=== PATIENT | female | born 1975 ===

== ENCOUNTER 2017-02-13 11:56 | Emergency (ER) | payer MEDICARE, OTHER ==
[2017-02-13 11:56] VITALS: BMI 33.7
[2017-02-13 12:13] VITALS: BP 129/80; PULSE 95; RESP 18; TEMP 98.2; O2SAT 96
--- NOTE | 2017-02-13 12:27 | ED PDOC ---
HPI: Back Chief Complaint (Nursing): Back Pain History Per: Patient History/Exam Limitations: no limitations Onset/Duration Of Symptoms: Gradual Current Symptoms Are (Timing): Still Present Previous Symptoms: Back Pain, Chronic Pain Exacerbating Factor(s): Movement Additional Complaint(s): 02/13/2017 Britta Hutton is a 41 y/o female, whose past medical hisotry inlcudes hyperlipidemia, scoliosis, and chronic lower back pain, who presents to the ED complaining of lower back pain radiating to her lower extremities. Patient reports these past few days the pain has become worse, especially with movement and admits to doing heavy lifting in her daily activities. Patient notes she has gone to physical therapy, and pain management, but has had no significant relief. Patient denies any fall, trauma, chest pain, shortness of breath, bowel or bladder incontinence/retention, saddle anesthesia, paresthesias, focal weakness, sensory deficit, gait dysfunction, hematuria or dysuria. PMD: Dr. Sanchez Past Medical History Reviewed: Historical Data, Nursing Documentation, Vital Signs Vital Signs: Last Vital Signs Temp 98.2 F 02/13/17 12:11 Pulse 95 H 02/13/17 12:11 Resp 18 02/13/17 12:11 BP 129/80 02/13/17 12:11 Pulse Ox 96 02/13/17 12:11 - Medical History PMH: Gastritis, Hyperlipidemia - Family History Family History: States: Unknown Family Hx - Home Medications Home Medications: Ambulatory Orders Medication Instructions Recorded Albuterol HFA [Ventolin HFA 90 90 mcg INH Q6 PRN 09/22/ mcg/actuation (8 g)] Aspirin 06/06/16 Ondansetron [Zofran Odt] 4 mg PO TID #8 odt 06/06/16 Naproxen 1 tab PO Q12 PRN #14 tab 02/13/17 diaZEpam [Valium] 5 mg PO Q6 PRN #5 tab 02/13/17 - Allergies Allergies/Adverse Reactions: Allergies Allergy/AdvReac Type Severity Reaction Status Date / Time No Known Allergies Allergy Verified 02/13/17 12:10 Review of Systems Constitutional: Negative for: Fever Cardiovascular: Negative for: Chest Pain Gastrointestinal: Negative for: Abdominal Pain Genitourinary Female: Negative for: Dysuria, Frequency, Incontinence Musculoskeletal: Positive for: Back Pain (chronic lower back pain radiating down to lower extremities) Neurological: Negative for: Headache Physical Exam - Reviewed Nursing Documentation Reviewed: Yes Vital Signs Reviewed: Yes - Physical Exam Appears: Positive for: Well, Non-toxic, No Acute Distress Head Exam: Positive for: ATRAUMATIC, NORMAL INSPECTION, NORMOCEPHALIC Skin: Positive for: Normal Color, Warm, DRY Back: Positive for: Other (mild paralumbar tenderness. no pointy body tenderness elicited) Extremity: Positive for: Normal ROM, Other (good strength on bilateral lower extremities). Negative for: Tenderness, Swelling Neurologic/Psych: Positive for: Alert, Oriented - ECG O2 Sat by Pulse Oximetry: 96 (room air) Pulse Ox Interpretation: Normal Medical Decision Making Medical Decision Makin02/13/2017 Impression: 41 y/o female with mild paralumbar tenderness. No pointy body tenderness elicited. Good strength on bilateral lower extremities. Plan: -- Reassess and disposition Re-evaluation: Discussed results and plan with patient. Patient understands results and is agreeable with plan. Patient was given the opportunity to ask questions and all questions were answered. Scribe Attestation: Documented by Juana Reyez, acting as a scribe for Severino Lebron PA-C Provider Scribe Attestation: All medical record entries made by the Scribe were at my direction and personally dictated by me. I have reviewed the chart and agree that the record accurately reflects my personal performance of the history, physical exam, medical decision making, and the department course for this patient. I have also personally directed, reviewed, and agree with the discharge instructions and disposition. Disposition - Clinical Impression Clinical Impression: Back strain - Disposition Condition: FAIR Prescriptions: diaZEpam [Valium] 5 mg PO Q6 PRN #5 tab PRN Reason: Muscle Spasm Naproxen 1 tab PO Q12 PRN #14 tab PRN Reason: Pain, Moderate (4-7) Instructions: Acute Low Back Pain (DC), Core Strengthening Exercises (GEN) Forms: [place] ([place]), [facility] ED School/Work Excuse
== END 2017-02-13 12:58 | disposition home or self-care (01) ==
LOC: H.ER 11:56
DX: S39.012A Strain of muscle, fascia and tendon of lower back, initial encounter (principal); X50.0XXA Overexertion from strenuous movement or load, initial encounter; Y93.89 Activity, other specified; Y92.89 Other specified places as the place of occurrence of the external cause